=== PATIENT | female | born 1945 | race Caucasian/White ===

== ENCOUNTER 2020-09-17 21:21 | Inpatient (IN) ==
[2020-09-17] MEDS ORDERED: HYDROmorphone 2 MG/1 ML VIAL IV STA (22:50)
[2020-09-17] MEDS ORDERED: ONDANSETRON 4 MG/2 ML VIAL IV STA (22:50)
[2020-09-17] MEDS ORDERED: SODIUM CHLORIDE 0.9% 500 ML IV STA (22:50)
[2020-09-17] MEDS ORDERED: PANTOPRAZOLE 40 MG VIAL IV STA (22:50)
[2020-09-17 23:35] LABS: Basophils % 0.1 % (0.0-0.8); Eosinophils % 0.4 % (0.00-10.9); Hematocrit 31.5 VOL% (35.7-47.0); Hemoglobin 10.4 GM/DL (12.0-16.0); Immature Granulocytes % 0.5 %; Immature Granulocytes Absolute 0.05 #; Lymphocytes # 0.3 10*3/uL (1.4-4.0); Lymphocytes % 3.5 % (21.3-54.2); Mean Corpuscular Volume 82.9 FL (87-102); Monocytes % 5.9 % (1.7-12.7); Neutrophils % 89.6 % (38.7-73.9); Platelet Count 222 T/CUMM (130-400); White Blood Count 9.7 T/CUMM (4-12)
[2020-09-18 00:02] LABS: Alanine Aminotransferase 24 U/L (13-56); Alkaline Phosphatase 100 U/L (45-117); Amylase 10 U/L (25-115); Aspartate Amino Transferase 15 U/L (0-37); Bilirubin,Total < 0.39 MG/DL (0.2-1.0); Blood Urea Nitrogen 16 MG/DL (7-18); Calcium 9.9 MG/DL (8.5-10.1); Estimated Glom Filtration Rate 44 ML/MIN; Glucose 203 MG/DL (74-106); Osmolality,Calculated 276.1 MOS/KG (273-304); Total Protein 6.9 G/DL (6.4-8.3); Troponin I < 0.015 NG/ML (0.00-0.045)
[2020-09-18 01:01] LABS: Bilirubin,Urine Negative (Negative); Blood, Urine Negative (Negative); Glucose,Urine (UA) Negative (Negative); Hyaline Casts,Urine 4 /LPF (0-3); Ketones,Urine Negative (Negative); Nitrite,Urine Negative (Negative); Protein,Urine Negative; RBC,Urine 1 /HPF (0-4); Renal Epithelial Cells,Urine Occasional /HPF (<1); Squamous Epithelial Cell,Urine Occasional /HPF (0-10); Urine Appearance CLEAR (Clear); Urine Color Yellow (Yellow); Urine Specific Gravity 1.018 (1.001-1.035); Urine Urobilinogen < 2.0 EU/DL (0.2-1.0); WBC,Urine 16 /HPF (0-6)
[2020-09-18 01:11] LABS: Eosinophils 1 % (0-10); Lymphocytes 2 % (20-55); Segmented Neutrophils 91 % (50-85); Total Cells Counted 100
[2020-09-18 01:13] LABS: Microcytosis 2+
[2020-09-18 01:14] LABS: Platelet Estimate Normal; Polychromasia Slight
[2020-09-18] MEDS ORDERED: ACETAMINOPHEN 325 MG TABLET PO PRN (01:48)
[2020-09-18] MEDS ORDERED: DEXTROSE 50% 25 GM/50 ML VIAL IV PRN (01:48)
[2020-09-18] MEDS ORDERED: ONDANSETRON 4 MG/2 ML VIAL IV PRN (01:48)
[2020-09-18] MEDS ORDERED: GLUCAGON 1 MG VIAL IM PRN (01:48)
[2020-09-18] MEDS: LACTATED RINGERS 1,000 ML IV SCH ×3 (02:43→15:40)
[2020-09-18] MEDS ORDERED: MORPHINE 4 MG/1 ML VIAL IV PRN (04:07)
[2020-09-18 05:50] LABS: Basophils % 0.1 % (0.0-0.8); Eosinophils # 0.1 10*3/uL (0.0-0.87); Eosinophils % 1.2 % (0.00-10.9); Hematocrit 31.3 VOL% (35.7-47.0); Hemoglobin 9.9 GM/DL (12.0-16.0); Immature Granulocytes % 0.4 %; Immature Granulocytes Absolute 0.03 #; Lymphocytes # 0.5 10*3/uL (1.4-4.0); Lymphocytes % 7.1 % (21.3-54.2); Mean Corpuscular HGB Conc 31.6 GM/DL (32-36); Mean Corpuscular Volume 85.5 FL (87-102); Mean Platelet Volume 9.7 FL (9.6-12.0); Monocytes % 7.9 % (1.7-12.7); Neutrophils % 83.3 % (38.7-73.9); Platelet Count 229 T/CUMM (130-400); Red Blood Count 3.66 MC/CUMM (3.8-5.5); Red Cell Distribution Width 14.2 % (9.3-17.3); White Blood Count 7.3 T/CUMM (4-12)
[2020-09-18 06:13] LABS: Osmolality,Calculated 279.8 MOS/KG (273-304)
[2020-09-18] MEDS: INSULIN LISPRO 100 UNIT/ML SUBCUT SCH ×4 (07:46→22:10)
[2020-09-18] MEDS: PANTOPRAZOLE 40 MG VIAL IV SCH ×2 (08:38→22:10)
[2020-09-18] MEDS: MELATONIN 3 MG TABLET PO PRN ×2 (10:09→22:11)
[2020-09-18] MEDS: MESALAMINE 800 MG TABLET PO SCH ×3 (10:48→22:07)
[2020-09-18] MEDS: predniSONE 20 MG TABLET PO SCH (10:48)
[2020-09-18] MEDS ORDERED: HYDROCORTISONE ENEMA 100 MG/60 ML BOTTLE RECTAL SCH (21:00)
[2020-09-19 03:44] LABS: Basophils % 0.3 % (0.0-0.8); Eosinophils % 0.3 % (0.00-10.9); Hematocrit 28.1 VOL% (35.7-47.0); Hemoglobin 9.1 GM/DL (12.0-16.0); Immature Granulocytes % 0.5 %; Immature Granulocytes Absolute 0.02 #; Lymphocytes # 0.6 10*3/uL (1.4-4.0); Lymphocytes % 14.6 % (21.3-54.2); Mean Corpuscular HGB Conc 32.4 GM/DL (32-36); Mean Corpuscular Volume 84.1 FL (87-102); Monocytes % 7.2 % (1.7-12.7); Neutrophils % 77.1 % (38.7-73.9); Platelet Count 212 T/CUMM (130-400); Red Blood Count 3.34 MC/CUMM (3.8-5.5); Red Cell Distribution Width 14.1 % (9.3-17.3); White Blood Count 3.9 T/CUMM (4-12)
[2020-09-19] MEDS: LACTATED RINGERS 1,000 ML IV SCH ×2 (04:48→10:18)
[2020-09-19 08:19] LABS: Alanine Aminotransferase 33 U/L (13-56); Albumin 2.5 G/DL (3.4-5.0); Alkaline Phosphatase 91 U/L (45-117); Aspartate Amino Transferase 19 U/L (0-37); Bilirubin,Total < 0.39 MG/DL (0.2-1.0); Blood Urea Nitrogen 10 MG/DL (7-18); Calcium 10.2 MG/DL (8.5-10.1); Estimated Glom Filtration Rate 62 ML/MIN; Glucose 121 MG/DL (74-106); Osmolality,Calculated 280.3 MOS/KG (273-304); Total Protein 5.9 G/DL (6.4-8.3)
[2020-09-19] MEDS: MESALAMINE 800 MG TABLET PO SCH (08:39)
[2020-09-19] MEDS: INSULIN LISPRO 100 UNIT/ML SUBCUT SCH ×2 (08:39→12:10)
[2020-09-19] MEDS: predniSONE 20 MG TABLET PO SCH (08:39)
[2020-09-19] MEDS: PANTOPRAZOLE 40 MG VIAL IV SCH (10:06)
[2020-09-19 11:51] VITALS: BP 172/62
== END 2020-09-19 15:09 | disposition home or self-care (01) | DRG 385 ==
LOC: N.ED 21:21 → N.EDINP 09-18 01:48 → N.5E 09-18 03:35
PROVIDERS: ADMIT Emergency Medicine; ATTEND Emergency Medicine